=== PATIENT | female | born 2000 | race Caucasian/White ===

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

== ENCOUNTER 2022-05-26 23:05 | Emergency (ER) | payer OTHER, SELFPAY ==
[2022-05-26 23:06] VITALS: BP 118/78; PULSE 70; RESP 15; TEMP 36.6; O2SAT 98; BMI 23.6
--- NOTE | 2022-05-26 23:39 | ED.VIS.LOWEX ---
HPI History of Present Illness Chief Complaint: Lower Extremity Injury Informant: patient Narrative Narrative: Here with mother evaluation left ankle injury while playing basketball 8 PM. Inversion injury. No head injuries. Right foot fracture with nonsurgical intervention in the past. No ankle sprains in the past. Ibuprofen taken prior to arrival. Franco wrap and crutches prior to arrival. Prior similar symptoms: No PFSH PFSH Medical History no medical history Home Medications NK 01/02/21 [History Last Taken Unknown] Allergy/AdvReac Type Severity Reaction Status Date / Time No Known Allergies Allergy Verified 05/26/22 23:06 Surgical History no surgical history Social History Smoking Status: Never smoker ROS ROS ED Constitutional Constitutional ED: Denies chills, fever(s) or sweats Eyes Eyes: Denies change in vision ENT ENT ED: Denies dysphagia or sore throat Cardiovascular Cardiovascular: Denies chest pain, leg edema, palpitations or racing heartbeat Respiratory/Chest Respiratory/Chest: Denies cough, dyspnea or dyspnea on exertion Gastrointestinal Gastrointestinal: Denies abdominal pain, diarrhea, nausea or vomiting Genitourinary Genitourinary ED: Denies dysuria, hematuria or urinary frequency Musculoskeletal Musculoskeletal: Reports extremity pain and other Details: Left lower extremity injury ; Denies back pain or neck pain Integumentary Denies rash or wounds Neurologic Neurologic: Denies headache(s), paresthesias or weakness EXAM Physical Exam Const Vital Signs: 05/26/22 23:06 Temperature 97.9 F Temperature Source Temporal Pulse Rate 70 Respiratory Rate 15 Blood Pressure 118/78 Blood Pressure Mean 91 Pulse Ox 98 Oxygen Delivery Method Room Air Positive well nourished and well developed General Appearance ED: well developed and NAD HEENT Reports moist mucous membranes normocephalic and atraumatic Eyes PERRL, EOMs intact bilaterally and conjunctivae normal General Eye ED: Yes normal appearance of both eyes Neck no lymphadenopathy and supple General: Negative for tenderness Chest Wall Chest: Negative for tenderness Resp normal respiratory effort and normal air movement Effort and Inspection: symmetric chest movement; Negative for respiratory distress Cardio regular rate, regular rhythm and no murmurs Peripheral Pulses: pulses 2+ throughout GI normal to inspection, nondistended, normoactive bowel sounds and non-tender Palpation: Negative for guarding or rebound tenderness present Back/Spine no CVA tenderness and no thoracic nor lumbar tenderness Extremity Extremity Narrative: Left lower extremity: No knee or proximal fibular head tenderness. Very minimal medial mall tenderness. Franco wrap was to the ankle. There was distal fibula and lateral malleolus tenderness with swelling. No midfoot tenderness. No proximal fifth base tenderness. Neuro vas intact distally. General Extremety ED: Negative for edema or tenderness General Extremity: Negative for edema Neuro oriented x3 and no sensory deficits noted Sensorium / Orientation: awake and alert Skin no rashes or lesions noted and no wounds MDM MDM MDM Narrative Medical decision making narrative: Ice was placed. 2 view left tib-fib and 3 view left ankle reviewed by myself and read by radiology negative for fracture or dislocation. Aircast provided along with continue her Franco wrap. She has crutches. Discussed continuing ibuprofen. Discussed if symptoms still persist or worsens after a week for follow-up with her PCP for reimaging's. She will weight-bear as tolerated. All questions were answered. Radiography Diagnostic Testing: Clinical Impression(s) from Imaging Studies Ankle X-Ray 05/26/22 23:50 IMPRESSION: Moderate soft tissue swelling without definite acute displaced fracture. If there is clinical concern for acute fracture, follow-up radiographs in 7-10 days maybe helpful in evaluating a healing radiographically occult fracture. Electronically Signed: Wanda Bentley MD at 0:30 EST Reading Location ID and State: [facility] / [place] , Service support , Tibia/Fibula X-Ray 05/26/22 23:50 IMPRESSION: No obvious acute fracture. If there is clinical concern for acute fracture, follow-up radiographs in 7-10 days maybe helpful in evaluating a healing radiographically occult fracture. Electronically Signed: Wanda Bentley MD at 0:40 EST , Discharge Plan Triage Chief Complaint: Lower Extremity Injury ED Provider: Eliazar Paul Dx/Rx/DC Orders Clinical Impression: Left ankle sprain, Injury of left ankle Instructions: ED Sprain Ankle W X Ray Prescriptions: No Action NK Primary Care Provider: Roque Govea Referrals: Roque Govea MD [Primary Care Provider] - 1 Week if not improving Activity Restrictions/Additional Instructions: Left ankle and tib-fib negative. Use Aircast crutches continue ibuprofen every 6 hours. Follow-up with your doctor in 1 week if symptoms do not improve. Disposition Disposition: Home, Self Care Discharge Date/Time: 05/27/22 01:44
--- NOTE | 2022-05-26 23:50 | RAD_ITS ---
STUDY: X-RAY - LEFT TIBIA AND FIBULA REASON FOR EXAM: Female, 21 years old patient with leg injury after playing basketball. TECHNIQUE: AP and lateral view(s) of the tibia and fibula were obtained. COMPARISON: None. FINDINGS: Normal visualized tibia. Normal visualized fibula. There is no demonstrated acute fracture. There is moderate soft tissue swelling of the lateral ankle. RAD/Tibia & Fibula 2 Views IMPRESSION: No obvious acute fracture. If there is clinical concern for acute fracture, follow-up radiographs in 7-10 days maybe helpful in evaluating a healing radiographically occult fracture. Electronically Signed: Wanda Bentley MD at 0:40 EST ,
--- NOTE | 2022-05-26 23:50 | RAD_ITS ---
STUDY: X-RAY - LEFT ANKLE REASON FOR EXAM: Female, 21 years old patient with ankle injury after playing basketball. TECHNIQUE: 3 view(s) of the ankle. COMPARISON: Prior comparable comparison studies are not available for review at this time. FINDINGS: Normal visualized distal tibia and fibula. Normal medial and lateral malleoli. Normal tibiotalar articulation and ankle mortise. Normal visualized talus and calcaneus. The tarsal bones have generally normal alignment. There is moderate soft tissue swelling of the lateral ankle. RAD/Ankle min 3 Views IMPRESSION: Moderate soft tissue swelling without definite acute displaced fracture. If there is clinical concern for acute fracture, follow-up radiographs in 7-10 days maybe helpful in evaluating a healing radiographically occult fracture. Electronically Signed: Wanda Bentley MD at 0:30 EST ,
== END 2022-05-27 01:44 | disposition home or self-care (01) ==
PROVIDERS: Emergency Provider Emergency Medicine; PCP Family Medicine; Visit Provider Emergency Medicine
DX: S93.402A Sprain of unspecified ligament of left ankle, initial encounter (principal); X50.1XXA Overexertion from prolonged static or awkward postures, initial encounter; Y93.67 Activity, basketball
CPT/HCPCS: 73590; 73610; 99283

== ENCOUNTER → 2023-01-20 | Outpatient (CLI) | payer OTHER, SELFPAY ==
[2023-01-24 13:07] LABS: Sickle Hgb Solubility Negative (Negative)
== END | disposition home or self-care (01) ==
LOC: MFPLAB 17:03
PROVIDERS: PCP Family Medicine; Visit Provider Family Medicine
DX: Z00.00 Encounter for general adult medical examination without abnormal findings (principal)
CPT/HCPCS: 36415; 85660

== ENCOUNTER → 2024-06-18 | Outpatient (CLI) | payer OTHER, SELFPAY ==
--- NOTE | 2024-06-18 15:45 | RAD_ITS ---
EXAM: XR ABDOMEN, 2 VIEWS CLINICAL INDICATION: abdominal pain. ? constipation TECHNIQUE: Frontal view of the abdomen/pelvis with upright view of the abdomen. COMPARISON: No relevant prior studies available. FINDINGS: LOWER THORAX: No acute pathology. INTRAPERITONEAL SPACE: No free air. GASTROINTESTINAL TRACT: Moderate amount of stool in the distal colon. Non-obstructive. No bowel or stomach distention. ORGANS: Unremarkable as visualized. No organomegaly. No abnormal calcifications. BONES/JOINTS: No acute pathology. SOFT TISSUES: No acute pathology. RAD/Abd Inc Decub and/or Erect IMPRESSION: Moderate amount of stool in the distal colon. Electronically Signed: Minh Mcpherson MD at 23:11 EST ,
[2024-06-18 17:39] LABS: Absolute Lymphocyte Count 2.17 X10^3/uL (0.83-4.51); Absolute Neutrophil Count 5.9 X10^3/uL (2.0-7.7); Basophil# 0.06 X10^3/uL; Basophil% 0.7 % (0-1); Eosinophil# 0.11 X10^3/uL; Eosinophils% 1.2 % (0-5); Hematocrit 41.3 % (37-47); Hemoglobin 13.5 g/dL (12.0-15.0); Lymphocyte # 2.17 X10^3/ul (0.83-4.51); Lymphocyte % 24.4 % (19-41); Mean Corp Hgb Conc 32.7 g/dL (32-36); Mean Corpuscular Hgb 28.8 pg (27.0-32.0); Mean Corpuscular Volume 88.1 fL (81-99); Mean Platelet Vol. 11.2 fl (6.2-12.0); Monocyte# 0.61 X10^3/uL; Monocyte% 6.9 % (0-10); NRBC Flagged by Analyzer 0 % (0-5); Neutrophil # 5.92 X10^3/uL (2.7-7.7); Neutrophil % 66.6 % (47-70); Platelet Count 345 K/mm3 (150-450); RBC Distribution Width CV 12.5 % (11.6-14.6); RBC Distribution Width SD 40.6 fl (35.1-43.9); Red Blood Count 4.69 M/mm3 (4.2-5.4); White Blood Count 8.9 K/mm3 (4.4-11.0)
[2024-06-18 18:00] LABS: ALB/GLOB Ratio 1.2 RATIO (0.9-2.4); AST(SGOT) 14 U/L (15-37); Alanine Aminotransfer ALT/SGPT 18 U/L (13-56); Albumin, Serum 4.1 g/dL (3.2-5.0); Alkaline Phosphatase 62 U/L (45-117); Anion Gap 5 (5-15); BUN 12 mg/dL (7-18); BUN/Creat Ratio 14.6 RATIO (10-20); Calcium,Total 9.1 mg/dL (8.5-10.1); Chloride 108 mmol/L (98-107); Creatinine, Serum 0.82 mg/dL (0.55-1.02); EST Glomerular Filtration Rate 93 mL/min (>60); Est Glom Filt Rate - Afr Amer 112 mL/min (>60); Globulin 3.5 g/dL (2.2-4.2); Glucose 87 mg/dL (74-106); Potassium 3.5 mmol/L (3.5-5.1); Protein, Total 7.6 g/dL (6.4-8.2); Sodium Level 140 mmol/L (136-145)
[2024-06-18 18:50] LABS: Erythrocyte Sedimentation Rate 1 mm/hr (0-30)
[2024-06-21 14:07] LABS: Deamidated Gliadin IgA 3 units (0-19); Deamidated Gliadin IgG 3 units (0-19); Endomysial Antibody IgA Negative (Negative); Immunoglobulin A 114 mg/dL (87-352); t-Transglutaminase IgA <2 U/mL (0-3)
== END | disposition home or self-care (01) ==
LOC: MTLAB 15:39
PROVIDERS: PCP Family Medicine; Referring Provider Family Medicine; Visit Provider Family Medicine
DX: R10.9 Unspecified abdominal pain (principal)
CPT/HCPCS: 36415; 74019; 80053; 82784; 83516; 84443; 85025; 85652; 86255